=== PATIENT | male | born 1975 | race Caucasian/White ===

== ENCOUNTER 2024-09-05 12:02 | Emergency (ER) | payer OTHER, SELFPAY ==
[2024-09-05 12:08] VITALS: BP 135/91
--- NOTE | 2024-09-05 12:41 | ED.GENMED ---
History of Present Illness
General
Chief Complaint: Musculo-Skeletal Complaint
Source: patient
Time Seen by Provider: 09/05/24 12:32
History of Present Illness
History of Present Illness:
49-year-old male with past medical history of hyperlipidemia and GERD presenting to the ER for evaluation after he had a 450 pound ramp fall onto his left, was able to get his foot out from underneath the ramp but now noting pain along the medial
aspect of the foot mainly concentrated around the first metatarsal. There is a small skin abrasion. Patient's tetanus is up-to-date. No other injuries were sustained. Patient denies any previous history of injury or surgery to the left foot.
Past History
Past History
ED Past Medical History: GERD and Hypercholesterolemia
ED Past Surgical History: Orthopedic
Social History
Tobacco: Former smoker
Alcohol: Occasional
Drug: None
Personal:
Living: with family
Employment: Employed
Review of Systems
Review of Systems
All Other Systems: ROS reviewed and negative except as documented in HPI and ROS
Phy Exam
Physical Exam
Physical Exam:
GENERAL: Alert , in no apparent distress
EYE: conjunctiva clear
Head: Normocephalic atraumatic
NECK: Supple,
ENT: mmm.
LUNGS: no acute respiratory distress
NEUROLOGICAL: Alert and oriented
SKIN: Warm and dry, small less than 6 mm skin abrasion to the dorsal aspect of the left foot in between the 1st and 2nd metatarsal
MUSCULOSKELETAL: well perfused. Easily palpable pedal and tibial pulse. Sensation grossly intact to light touch. Significant tenderness over the mid first metatarsal
PSYCH: Normal and appropriate interaction.
Scores
Heart Failure Risk
Heart Failure Risk Score: Not Applicable
Heart Score for Chest Pain Patients
STEMI patient?: Not applicable
Withdrawal Assessment of Alcohol
Withdrawal Assessment Completed?: Not applicable
Course
Orders/Labs/Results
Orders:
Orders
09/05/24 12:11
CR Foot - Left Min 3 Views Urgent
Comment:
Reason For Exam: injury
09/05/24 12:43
Ortho Boot Left- Treatment ONCE
Short or tall?: Short
Vital Signs
Initial and Last Documented VS:
Initial Vital Signs
Temp Pulse Resp BP Pulse Ox
98.2 F 84 18 135/91 99
09/05/24 12:08 09/05/24 12:08 09/05/24 12:08 09/05/24 12:08 09/05/24 12:08
Last Documented Vital Signs
Temp Pulse Resp BP Pulse Ox
98.2 F 84 18 135/91 99
09/05/24 12:08 09/05/24 12:08 09/05/24 12:08 09/05/24 12:08 09/05/24 12:08
MDM/Problems Addressed
Differential Diagnosis Includes:
Contusion, fracture, no concern for vascular or arterial compromise
MDM/Problems Addressed:
49-year-old male presenting to the ER for evaluation after sustaining crush injury to the left foot. X-ray ordered from triage shows a nondisplaced left first metatarsal fracture. Nonadherent gauze and bandage placed over the skin abrasion.
Patient was fitted for a orthopedic boot and advised to keep this on and only remove for sleeping and showering. NSAIDs/Tylenol as needed for pain. I did send a short-term prescription for Percocet for better pain control to be used as needed.
Information for orthopedics provided. Patient has crutches already from her previous orthopedic injury. Aware of return precautions to the ER.
*Radiology
Radiology exam reviewed: preliminary read by ED provider (Left first metatarsal fracture)
*Pulse Oximetry
Patient hypoxic: no
*Critical Care Note
Total Time (30-74mins, 75-104mins- exclusive of procedures): Not Applicable
ED Attending Note
-
Portions of this chart may have been created with voice recognition software.� Occasional wrong word or��sound alike� substitutions may have occurred due to the inherent limitations of voice recognition software.
Discharge Plan
Departure
Patient Disposition: Home (Routine Discharge)
Date of Disposition: 09/05/24
Time of Disposition: 12:41
Patient with high blood pressure during this ER visit?: Yes
Discharge Problem:
Closed fracture of first metatarsal bone of left foot
Instructions: Foot Fracture ED
Prescriptions:
New
oxycodone-acetaminophen [Percocet] 5-325 mg tablet
1 tab PO Q6HPRN PRN (Reason: pain) Qty: 8 0RF
No Action
ranitidine HCl [Zantac] 150 MG tablet
150 mg PO DAILYPRN PRN (Reason: acid reflux)
acetaminophen 325 MG tablet
650 mg PO Q4HPRN PRN (Reason: mild pain, GALE, temp >101) Qty: 0 0RF
aspirin 325 MG tablet,delayed release (DR/EC)
325 mg PO DAILY Qty: 0 0RF
oxycodone 10 MG tablet
10 mg PO Q4HPRN PRN (Reason: pain) Qty: 90 0RF
Referrals:
Shelia Dhaliwal DO [Active] - (Ortho - Please call for appointment)
Gage Hodges DO [Family Provider] -
Interventions
Interventions:
*Risk Screen - Suicide Last Done: 09/05/24 12:08
*General Assessment Last Done: 09/05/24 12:08
*Neglect/Abuse Screening Last Done: 09/05/24 12:08
*ED- Fall Risk Assessment Last Done: 09/05/24 13:00
*ED COVID-19 Vaccine History Last Done: 09/05/24 12:08
*Nursing Disposition Last Done: 09/05/24 13:00
ED-Musculoskeletal Assessment Last Done: 09/05/24 13:18
Discharge Date and Time
Discharge Date/Time: 09/05/24 13:18
Print Language: ICELANDIC
== END 2024-09-05 13:18 | disposition home or self-care (01) ==
LOC: EMR 12:02
PROVIDERS: EMERGENCY PHYSICIAN Emergency Medicine; FAMILY PHYSICIAN Family Medicine
DX: S92.315A Nondisplaced fracture of first metatarsal bone, left foot, initial encounter for closed fracture (principal); S90.812A Abrasion, left foot, initial encounter; S97.82XA Crushing injury of left foot, initial encounter; W23.0XXA Caught, crushed, jammed, or pinched between moving objects, initial encounter; R03.0 Elevated blood-pressure reading, without diagnosis of hypertension; E78.00 Pure hypercholesterolemia, unspecified; K21.9 Gastro-esophageal reflux disease without esophagitis; Z87.891 Personal history of nicotine dependence
CPT/HCPCS: 99283; 29515; 73630